=== PATIENT | male | born 1985 | race American Indian/Alaskan Native ===

== ENCOUNTER 2021-03-01 08:42 | Emergency (ER) | payer SELFPAY ==
[2021-03-01] MEDS ORDERED: METOCLOPRAMIDE 10 MG/2 ML INJ IV ONE (09:01)
[2021-03-01] MEDS ORDERED: MORPHINE 4 MG/1 ML INJ IV ONE ×2 (09:01→11:31)
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
[2021-03-01 10:20] LABS: Basophils # (Auto) 0.1 K/mm3 (0.0-0.1); Basophils % (Auto) 0.6 % (0.0-1.8); Eosinophils # (Auto) 0.2 K/mm3 (0.0-0.4); Eosinophils % (Auto) 1.8 % (0.0-4.3); Hematocrit 37.2 % (35.5-45.6); Hemoglobin 12.2 gm/dl (11.8-15.2); Lymphocytes # (Auto) 1.1 K/mm3 (1.2-5.4); Lymphocytes % (Auto) 12.1 % (13.4-35.0); Mean Corpuscular HGB Conc 33 % (32-34); Mean Corpuscular Volume 90 fl (84-94); Monocytes # (Auto) 0.7 K/mm3 (0.0-0.8); Monocytes % (Auto) 7.6 % (0.0-7.3); Red Blood Count 4.12 M/mm3 (3.65-5.03); Red Cell Distribution Width 15.5 % (13.2-15.2)
[2021-03-01 10:43] LABS: BUN/Creatinine Ratio 11; Blood Urea Nitrogen 10 mg/dL (9-20); Calcium 9.9 mg/dL (8.4-10.2); Hemolysis Index 2
[2021-03-01 10:58] LABS: Platelet Count 353 K/mm3 (140-440)
[2021-03-01 12:32] VITALS: BP 145/77
== END 2021-03-01 14:20 ==
LOC: ED 08:42
DX: M54.16 Radiculopathy, lumbar region (principal); G89.18 Other acute postprocedural pain
CPT/HCPCS: 36415; 80048; 82140; 85025; 86140; 96374; 96375; 96376; 99284; J2270; J2765